=== PATIENT | male | born 1960 | race Caucasian/White ===

== ENCOUNTER → 2024-02-02 13:09 | Outpatient (REF) | payer MEDICAID, SELFPAY | LOC: RAD 13:09 | PROVIDERS: ATTENDING PHYSICIAN Surgery Vascular Surgery; FAMILY PHYSICIAN Internal Medicine | DX: I73.9 Peripheral vascular disease, unspecified (principal) | CPT/HCPCS: 93922; 93925 ==

== ENCOUNTER → 2024-07-23 10:44 | Outpatient (REF) | payer MEDICAID, SELFPAY | LOC: RAD 10:44 | PROVIDERS: ATTENDING PHYSICIAN Registered Nurse | DX: I73.9 Peripheral vascular disease, unspecified (principal) | CPT/HCPCS: 93922; 93925 ==

== ENCOUNTER → 2025-04-18 09:37 | Outpatient (REF) | payer OTHER, SELFPAY | LOC: RAD 09:37 | PROVIDERS: ATTENDING PHYSICIAN Surgery Vascular Surgery | DX: I73.9 Peripheral vascular disease, unspecified (principal) | CPT/HCPCS: 93922; 93925 ==

== ENCOUNTER → 2025-06-09 14:42 | Outpatient (REF) | payer OTHER, SELFPAY | LOC: RAD 14:42 | PROVIDERS: ATTENDING PHYSICIAN Surgery Vascular Surgery; FAMILY PHYSICIAN Internal Medicine | DX: I73.9 Peripheral vascular disease, unspecified (principal) | CPT/HCPCS: 75635; Q9967 ==

== ENCOUNTER 2025-09-01 08:20 | Inpatient (IN) | payer OTHER, SELFPAY ==
[2025-08-28 13:47] LABS: APTT 28.4 Sec (23.4-35.0); Hematocrit 39.5 % (39.0-52.0); Hemoglobin 14.2 g/dL (13.0-18.0); INR 1.05; Mean Corp Hgb Conc. 35.9 g/dL (33.0-37.0); Mean Corpuscular Volume 107.0 fL (80.0-94.0); Nucleated Red Blood Cells % 0 % (-); PT 14.0 Sec (11.4-14.6); Platelet Count 207 10^3/uL (130-400); Red Cell Dist. Width 13.2 % (11.5-14.5)
[2025-08-28 13:48] VITALS: BMI 33.8
[2025-08-28 13:49] LABS: Blood Urea Nitrogen 12 mg/dl (9-20); Calcium 9.0 mg/dl (8.4-10.2); Carbon Dioxide 21 mmol/L (22-30); Chloride 106 mmol/L (98-107); Estimated Creatinine Clearance > 125 ml/min; Glucose 86 mg/dl (70-99); Potassium 4.3 mmol/L (3.5-5.1); Sodium 141 mmol/L (135-145); eGFR > 60.00
[2025-09-01] VITALS (11 sets, daily range): BP systolic 135–154; BP diastolic 81–97; BMI 33.9
[2025-09-01] MEDS: PERIDEX 0.12% ORAL RINSE 15 ML PO (08:47)
[2025-09-01] MEDS: BACTROBAN NASAL 1 GRAM NASAL (08:47)
[2025-09-01] MEDS: NSS 500 IV (08:50)
--- NOTE | 2025-09-01 08:50 | W.SUR.PREOP ---
Pre-Operative Surgical Note
-
I have examined this patient prior to the performance of the scheduled procedure.
The patient's condition is unchanged from the time of the current History and
Physical and the patient is able to undergo the scheduled procedure.
--- NOTE | 2025-09-01 11:42 | W.SUR.POST ---
Surgical Immediate Post Op
Note
Pre Op Diagnosis: PAD
Post Op Diagnosis: PAD
Procedure Performed: Right femoral endarterectomy with bovine pericardial patch angioplasty
Primary Surgeon: Varghese
Secondary Surgeons: Uziel ESPINOZA
Anesthesia: general
Estimated Blood Loss: 15cc
Fluids: see anesthesia flow sheet
Drains/Shunts: none
Specimens/Cultures: plaque
Doppler/Duplex/Angio (Y/N): Y
Complications: none
Operative Findings: Doppler PT and DP signals
--- NOTE | 2025-09-01 12:09 | OR.RPT ---
Operative Report
Operative Report
PROCEDURE DATE: 09/01/2025
Preoperative diagnosis: Debilitating right calf claudication, possible right leg ischemic rest pain.
Postoperative diagnosis: Same
Procedure: Right iliofemoral endarterectomy (distal external iliac artery, common femoral artery, profunda femoris) with bovine pericardial patch angioplasty/profundoplasty.
Surgeon: Varghese
Pharmaceutical Worker: AZIZA Triplett, required for all aspects of procedure including assistance with traction/countertraction, following a suture line, assistance with closure.
Complications: None
Anesthesia: General
Indications for procedure:
Severe bulky plaque stenosis/near occlusion right common femoral artery/femoral bifurcation. Debilitating claudication as well as possible ischemic rest pain. Risk/benefits/alternatives of revascularization all fully discussed. Patient understood
all and wished to proceed.
Description of procedure:
Patient was identified brought to the operating room placed on the table in supine position. After the adequate administration of anesthesia he was prepped and draped in the standard surgical fashion. A standard preoperative timeout was undertaken
and everybody was in agreement the plan. Longitudinal incision was made in the right groin that was carried through skin subcutaneous tissue with electrocautery. Any crossing lymphatic type branches or venous branches were ligated between silk
ties and divided to allow full exposure. I dissected down to the level of the inguinal ligament. The common femoral artery was then dissected as it emerged from underneath inguinal ligament. It was noted to be heavily calcified. I then continued
dissection to the bifurcation and then onto the proximal superficial femoral artery. This artery was chronically calcified with heavy occlusive plaque as noted on CT scan imaging. Circumferential dissection was performed of the SFA and Vesely
passed around it to allow better retraction of it.
Now I dissected back to the proximal common femoral artery, and underneath the inguinal ligament. The circumflex iliac artery (lateral circumflex iliac artery) were circumferentially dissected and a vessel loop passed around it. I then dissected
proximally to here in the distal external iliac artery. I noted the vessel to be soft but there is a little bit of posterior plaque. However it is nicely clamp up here. I carefully circumferentially dissected and passed a vessel loop around it
here. Note I had seen on the CAT scan there was a large common femoral artery posterior branch. I carefully isolated this branch and circumferentially dissected and passed a vessel loop around it.
Now I dissected back to the femoral bifurcation and the origin of the profunda. The profunda was then dissected through the first branch point. Any crossing veins were ligated between silk ties and then divided. The main 2 branches of profunda
were then controlled with Vesseloops. Now that I had complete control of the femoral branches, I gave the patient 9000's of intravenous heparin. Once this had circulated, I clamped the profunda and profunda branches with the profunda clamp and
tightening a double looped vessel loop. Next I placed a Derra clamp on the distal external iliac artery. Any other branches were now occluded with tightened double looped Vesseloops. An arteriotomy was made on the profunda distally where it was
soft just beyond the branch point. I then extended this arteriotomy with a Cates scissor in a retrograde fashion onto the common femoral artery. There was heavy dense bulky plaque making arteriotomy even challenging. However I was able to extend
my arteriotomy all the way up to the proximal common femoral artery. There was essentially occlusive plaque at the origin of the profunda. Bulky coral reef plaque extending into the SFA. SFA chronically occluded. This point I used a Wales to
endarterectomized the plaque. I was able to feathered the plaque out to a nice clean endpoint on the profunda. The plaque came out somewhat piecemeal. I then grasped the plaque in the common femoral artery and then transected it. I then grasped
it proximally and then used my Wales to continue endarterectomized back to the very proximal common femoral artery and then teased out the plaque. However I had to now extend my clamp a little more cephalad. I now extended my arteriotomy slightly
to the distal external iliac artery as well. I now grasped the remainder of the posterior plaque and any loose plaque and removed it. Now I was satisfied. I had to remove the plaque right up to the clamp. Any fine debris was then removed with a
fine forcep. I then inspected the entire endarterectomy bed and removed any fine debris with fine forceps. I then irrigated heparinized saline. I inspected my proximal distal endpoints and was very satisfied. Of note I had removed some plaque
from the origin of the superficial femoral artery to allow a sewing ring of tissue. The plaque did not come out en bloc from the origin of the SFA but rather piecemeal. At this point I was very satisfied. I did place a 6-0 Prolene [id number]
reapproximation/repair type suture at the crotch of the bifurcation as the anterior wall between the profunda and the SFA had slightly torn. This repair stitch worked very nicely. Now I used a bovine pericardial patch to sew up long patch
angioplasty using a running 6-0 Prolene suture. Prior to completing and tying down my suture line I backbled the branches and then flushed heparinized saline. I then completed and tied down my suture line. I then released the profunda branches
Vesseloops. I then released the Derra clamp on the distal external iliac artery. Now there is excellent pulsatile flow going down. I then remove my profunda clamp. Excellent pulsatile flow is noted in the profunda and its branch. Doppler
confirmed excellent signals. At this point is very satisfied. I irrigated. A single 6-0 Prolene [id number] suture was placed on the suture line/crotch area of the bifurcation for full hemostasis. I now gave protamine to reverse the heparin.
Meticulous hemostasis was achieved. I then irrigated copiously. I confirmed full hemostasis. We then closed in layers using 2 layers of 2-0 Vicryl followed by 3-0 Vicryl deep dermal running layer, followed by 4-0 Monocryl running subcuticular
stitch. Dermabond and dressings were applied. The patient tolerated the procedure well. All sponge, needle, instrument counts were correct at the end of the case. The patient was transported to recovery room in stable condition.
[2025-09-01 12:32] LABS: Hematocrit 38.0 % (39.0-52.0); Hemoglobin 13.2 g/dL (13.0-18.0); Mean Corp Hgb Conc. 34.7 g/dL (33.0-37.0); Mean Corpuscular Volume 105.8 fL (80.0-94.0); Platelet Count 172 10^3/uL (130-400); Red Cell Dist. Width 13.5 % (11.5-14.5)
[2025-09-01 12:56] LABS: Blood Urea Nitrogen 12 mg/dl (9-20); Calcium 8.5 mg/dl (8.4-10.2); Carbon Dioxide 22 mmol/L (22-30); Chloride 107 mmol/L (98-107); Estimated Creatinine Clearance > 125 ml/min; Glucose 113 mg/dl (70-99); Potassium 4.4 mmol/L (3.5-5.1); Sodium 137 mmol/L (135-145); eGFR > 60.00
--- NOTE | 2025-09-01 13:13 | CON.INTV ---
Consultation
Consultation Request
Date/Time Consultation Requested: 09/01
Date/Time Consultation Performed: 09/01
Reason for Consultation: Critical care
Medical History
-
History of Present Illness:
History obtained from the patient and reviewing outpatient and inpatient medical records. Patient is a 64-year-old male with history of hypertension, hyperlipidemia, vascular disease with history of left femoral endarterectomy urgently in 2021,
with ongoing right calf claudication after 50 yards. Patient also has history of coronary disease with recent heart attack about 6 months ago requiring a stent at [facility] (Dr. Toney). Unfortunately continues to smoke, a pipe twice a day. He is
now status post right femoral endarterectomy with bovine patch angioplasty. Presently he is not good spirits. He does have a chronic cough. We are asked to help from critical care standpoint
.
PMH: Hypertension, hyperlipidemia, peripheral vascular disease, autonomic neuropathy, history of cellulitis. History of left femoral endarterectomy 2021. History of coronary disease with [place] requiring stent spring 2024 at [facility]. History of BPH
with hematuria in the past follows urology
Past Medical History
Past Medical History: None (See above)
Past Surgical History: None (See above)
Social History
Tobacco: Former Smoker ([id number], rolled his own cigarettes in the past. Currently smoking a pipe)
Alcohol: Former (Significant alcohol use, quit 2019. Drinks 4 ounces a week at this time)
Drug: None
Personal: Single
Living: With Roomate (Lives with a roommate, has a dog)
Employment: Employed (Works with [employer]. 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
Family History
Family History: Other (1 son from motor vehicle accident.The son healthy. Siblings alive. Negative for blood clots, lung cancer)
Allergies / Home Medications
Allergies
Allergy/AdvReac Type Severity Reaction Status Date / Time
No Known Allergies Allergy Verified 09/01/25 08:37
Home Medications
�Medication �Instructions �Recorded �Confirmed �Last Taken �Type
aspirin 81 mg tablet,delayed 81 mg PO DAILY 07/26/22 09/01/25 08/31/25 10:00 History
release
amlodipine 10 mg tablet 10 mg PO DAILY 08/27/25 09/01/25 08/31/25 10:00 History
atorvastatin 40 mg tablet 40 mg PO DAILY 08/27/25 09/01/25 08/31/25 10:00 History
cefuroxime axetil 500 mg tablet 500 mg PO BID 08/27/25 08/27/25 08/26/25 History
clopidogrel 75 mg tablet (Plavix) 75 mg PO DAILY 08/27/25 09/01/25 08/31/25 10:00 History
gabapentin 300 mg capsule 300 mg PO DAILY 08/27/25 09/01/25 08/31/25 10:00 History
losartan 50 mg tablet 50 mg PO DAILY 08/27/25 09/01/25 08/31/25 10:00 History
metoprolol succinate 50 mg 50 mg PO DAILY 08/27/25 09/01/25 08/31/25 10:00 History
tablet,extended release 24 hr
pantoprazole 40 mg tablet,delayed 40 mg PO DAILY 08/27/25 09/01/25 08/31/25 10:00 History
release (Protonix)
Review of Systems
-
All other systems: Negative unless noted
Vitals / Labs / Diagnostic Testing
Vital Signs
Temp Pulse Resp BP Pulse Ox
97.9 F 90 21 145/83 94
09/01/25 13:01 09/01/25 13:01 09/01/25 13:01 09/01/25 13:01 09/01/25 13:01
Lab Data
09/01/25 12:26
09/01/25 12:26
Diagnostic Testing:
Physical Exam
-
HEENT: Normocephalic, Anicteric and Other (Right upper extremity A-line)
Cardiovascular: S1/S2, Regular Rhythm, Murmur (n), Peripheral Edema (tr) and Other (Peripheral pulses intact. Femoral pulse intact)
Respiratory: Clear, Wheeze (Few scattered), Rales (n), Rhonchi (Few scattered) and Non-Labored Respirations
GI: Soft, Distended (mildly distended, obese) and Non Tender
Neurology: Awake, Alert and No Motor Deficits (Moves all extremities)
Skin: Good Color
General: Comfortable
Assessment
-
64-year-old male with history of peripheral vascular disease, left femoral to tibial bypass surgery in 2021, with ongoing claudication symptoms, now presents status post right femoral endarterectomy with angioplasty
S/p rt femoral endarterectomy with angioplasty
09/01/2025
Ongoing claudication symptoms
History of peripheral vascular disease
S/p LLE femoral endarterectomy 2021(left femoral to posterior tibial artery bypass with ipsilateral greater saphenous vein conduit)
Suspected COPD
History of dark stool while on Xarelto in the past
Conditions present prior to admission
History of transaminitis
ALT 96, AST 223 in June 2025 per outpatient records
Coronary disease history of stent spring 2024
Followed at [facility] ([facility])
Right bundle branch block per EKG
Hypertension/hyperlipidemia
75+ pack year history of smoking, continues to smoke a pipe
Former significant alcohol use, quit 2019
Currently drinks 4 ounces a week
History of BPH, hematuria
Chronic back pain, DJD
Plan/recommendations
At this time, patient appears to be comfortable, but critically ill
Arterial line in place, systolic pressure 160s
Lower extremities warm, pulses intact
Chronic stasis changes left leg noted
Groin intact
On chest exam there is some wheezing and rhonchi
89% on 4 L
Moving forward,
continue with management per vascular surgery
Antiplatelet therapy, IV fluids, subcutaneous heparin per vascular surgery
Follow-up pulses
Blood pressure 160s/80s noted. Follow
Resume outpatient regimen
Recent coronary event with stent placement
Continue aspirin/Plavix
Patient status post PCI proximal RCA stent 03/10/2025
History of dark stool and hematuria in the past noted
Pain control
Bowel regimen as needed
CXR 08/28 unremarkable
Wheezing on exam noted
Incentive spirometry, airway clearance
Suspect there is a component of COPD. Patient does not see pulmonary
DuoNebs as needed
Would benefit from outpatient pulmonary follow-up. Would benefit from lung cancer screening
Abdominal images from earlier this year lung bases are clear
Although patient is cut down from 2 packs a day, he is still smoking a pipe on a daily basis
Tobacco cessation will be an ongoing discussion
Reviewed with critical care nursing
We will follow
TCCT 31 min
[2025-09-01] MEDS: NSS 1000 IV (13:58)
--- NOTE | 2025-09-01 14:00 | PTCARENOTE ---
1315-Received pt from PACU via bed.Pt is awake and alert.No dysarthria noted.+5/5 bl upper ext.+2-3/5 bl lower ext.c/o right groin pain with movement.SR noted.Right radial A Line intact and at mid axillary.IVF infusing as ordered.Coarse breath
sounds with inspiratory wheeze noted.POX 95% on 4l NC.O2.Tolerating clear liquids.Zavala draining yellow urine.Right groin intact with dressing.Plan of care discussed with pt.
[2025-09-01] MEDS: TYLENOL 650 MG PO ×2 (14:02→21:07)
[2025-09-01] MEDS: DUONEB 3 ML INH ×2 (15:27→19:55)
--- NOTE | 2025-09-01 16:30 | PTCARENOTE ---
Pt assessed.No change in assessment noted.
[2025-09-01] MEDS: HEPARIN 5000 UNITS SC (16:54)
[2025-09-01 20:12] LABS: Magnesium 1.0 mg/dl (1.6-2.3)
[2025-09-01] MEDS: MAGNESIUM SULFATE 100 IV (21:08)
[2025-09-02] VITALS (7 sets, daily range): BP systolic 100–148; BP diastolic 56–87; BMI 34.1
--- NOTE | 2025-09-02 00:03 | PTCARENOTE ---
Strong doppler signals bilaterally. Tylenol requested for pain. Groin dressing CDI. Mag level 1.0, 4g mag given as ordered. Will monitor
[2025-09-02] MEDS: HEPARIN 5000 UNITS SC ×4 (00:26→23:57)
[2025-09-02] MEDS: NSS 1000 IV (00:26)
[2025-09-02 03:41] LABS: Hematocrit 34.9 % (39.0-52.0); Hemoglobin 12.7 g/dL (13.0-18.0); Mean Corp Hgb Conc. 36.4 g/dL (33.0-37.0); Mean Corpuscular Volume 107.7 fL (80.0-94.0); Platelet Count 159 10^3/uL (130-400); Red Cell Dist. Width 13.1 % (11.5-14.5)
[2025-09-02 03:52] LABS: INR 1.02; PT 13.7 Sec (11.4-14.6)
[2025-09-02 03:53] LABS: APTT 28.0 Sec (23.4-35.0)
--- NOTE | 2025-09-02 03:53 | PTCARENOTE ---
CHG provided. Labs sent and pending. No change in previous assessment. Will monitor.
[2025-09-02 04:01] LABS: Blood Urea Nitrogen 13 mg/dl (9-20); Calcium 8.6 mg/dl (8.4-10.2); Carbon Dioxide 24 mmol/L (22-30); Chloride 106 mmol/L (98-107); Estimated Creatinine Clearance > 125 ml/min; Glucose 173 mg/dl (70-99); Magnesium 1.9 mg/dl (1.6-2.3); Potassium 4.2 mmol/L (3.5-5.1); Sodium 135 mmol/L (135-145); eGFR > 60.00
[2025-09-02] MEDS: TOPROL XL 50 MG PO (07:11)
[2025-09-02] MEDS: COZAAR 50 MG PO (07:11)
[2025-09-02] MEDS: NORVASC 10 MG PO (07:11)
[2025-09-02] MEDS: DUONEB 3 ML INH ×4 (07:36→19:39)
--- NOTE | 2025-09-02 07:40 | PTCARENOTE ---
Handoff from night RN, walking rounds performed, pt hypertensive this am, due for BP meds...given by night RN at approx 07:30. Pt AOx3, pt pleasant and cooperative. Dr. Kwong and CORNCOB PIPE SUPERVISOR at bedside at this time, orders rec'd. Pt updated. Call worthy in reach.
--- NOTE | 2025-09-02 07:57 | W.PN.INTV ---
Addendum entered and electronically signed by Dafne Ramos MD 09/02/25 17:12:
Patient transferred out of ICU
Pulmonary will continue to follow
Original Note:
Today's Communication / Plan
Recommendations
Continue DuoNebs
Doxycycline started
Will require follow-up chest x-ray in 4 to 6 weeks to confirm resolution of right lower lobe process
Tobacco cessation
Out of bed to chair, ambulate
Disposition efforts
Assessment
-
64-year-old male with history of peripheral vascular disease, left femoral to tibial bypass surgery in 2021, with ongoing claudication symptoms, now presents status post right femoral endarterectomy with angioplasty
S/p rt femoral endarterectomy with angioplasty
09/01/2025
Secondary to claudication symptoms
History of peripheral vascular disease
S/p LLE femoral endarterectomy 2021(left femoral to posterior tibial artery bypass with ipsilateral greater saphenous vein conduit)
Respiratory insufficiency, hypoxia
Requiring 4 L
Suspected COPD
History of dark stool while on Xarelto in the past
Questionable right lower lobe pneumonia versus mucous plugging
Conditions present prior to admission
History of transaminitis
ALT 96, AST 223 in June 2025 per outpatient records
Coronary disease history of stent spring 2024
Followed at [place] ([facility])
Right bundle branch block per EKG
Hypertension/hyperlipidemia
75+ pack year history of smoking, continues to smoke a pipe
Former significant alcohol use, quit 2019
Currently drinks 4 ounces a week
History of BPH, hematuria
Chronic back pain, DJD
Plan/recommendations
At this time, patient appears to be comfortable
Hypoxia noted overnight requiring 4 L
Chest x-ray with questionable right lower lobe process, pneumonitis versus mucous plugging
Chest exam has improved
Lower extremities warm, pulse intact, groin intact
89% on 4 L
Moving forward,
continue with management per vascular surgery
Antiplatelet therapy, IV fluids, subcutaneous heparin per vascular surgery
A-line to be discontinued, Zavala to be discontinued, out of bed to chair
Resume outpatient regimen
Recent coronary event with stent placement
Continue aspirin/Plavix
Patient status post PCI proximal RCA stent 03/10/2025
History of dark stool and hematuria in the past noted
Hemoglobin stable
Pain control
Bowel regimen as needed
CXR 08/28 unremarkable
Chest x-ray 09/01 with right lower lobe process, suspect mucous plugging
Wheezing on exam noted
Incentive spirometry, airway clearance
Will check sputum culture and give short course of doxycycline
Unfortunately, patient continues to smoke
Reviewed importance of tobacco cessation
Suspect there is a component of COPD. Patient does not see pulmonary
DuoNebs as needed
Would benefit from outpatient pulmonary follow-up. Would benefit from lung cancer screening
Abdominal images from earlier this year lung bases are clear
Although patient is cut down from 2 packs a day, he is still smoking a pipe on a daily basis
He has told other providers that he also continues to smoke 2 cigarettes a day
Tobacco cessation will be an ongoing discussion
Reviewed with critical care nursing, respiratory care, pharmacy
Ongoing disposition efforts
Subjective Dataa
Subjective Data
Date of Service:
Date of Service: September 02, 2025
Subjective:
Overall, patient appears to be comfortable. He denies chest pain, nausea. He has some mild groin discomfort, denies leg pain. Productive cough noted, no hemoptysis.
Objective Data
Data Reviewed
Vital Signs / I&O / Oxygen:
Vital Signs
Temp Pulse Resp BP Pulse Ox
98.4 F 79 18 172/76 90
09/02/25 03:50 09/02/25 07:38 09/02/25 07:38 09/02/25 07:11 09/02/25 07:38
Intake and Output
09/01/25 09/02/25 09/03/25
06:59 06:59 06:59
Intake Total 1790 / 1870 80 / 80
Output Total 1725 / 1725
Balance 65 / 145 80 / 80
SaO2 90
Nasal Cannula flow liters per 4
minute
Physical Exam
General: Comfortable
HEENT: Normocephalic and Anicteric
Cardiovascular: S1-S2, Regular Rhythm, Murmur (n), Rub (n), Peripheral Edema (Trace left lower extremity) and Other (Pulses intact, right groin intact)
Respiratory: Wheeze (n), Crackles (n), Rhonchi (Improved), Non-Labored Respirations and Other (Bronchial breath sounds)
GI: Soft, Non Distended (Obese) and Non Tender
Neurology: Awake, Alert and No Motor Deficits
Skin: Jaundice (n) and Rash (n)
Labs/Micro/Reports
Lab Data
09/02/25 03:00
09/02/25 03:00
Laboratory Results
09/02/25
03:00
PT 13.7
INR 1.02
APTT 28.0
--- NOTE | 2025-09-02 08:11 | W.PN.VS ---
Addendum entered and electronically signed by Himanshu Kwong MD 09/02/25 15:14:
Seen and examined earlier this a.m. with CARDING MACHINE OPERATOR. Agree with findings as noted below. Patient without significant complaints at that time. Abdomen soft. Right groin flat. Dressing clean dry and intact. Foot warm with excellent Doppler signals.
Plan/as discussed and noted below.
Original Note:
Today's Communication / Plan
-
Patient seen and examined at bedside with Dr. Himanshu Kwong M.D., below plan reviewed with attending.
Assessment/Plan
-
Assessment: 64-year-old male POD #1 right femoral endarterectomy
Plan:
Discontinue IV fluids
Discontinue arterial line
Discontinue Zavala catheter
Patient can get out of bed to chair this morning
Continue home regimen of aspirin 81 mg p.o. daily and Plavix 75 mg p.o. daily, along with statin
Continue neurovascular checks
Continue to encourage incentive spirometry
Subjective Data
-
Date of Service: September 02, 2025
Patient seen examined bedside, offers no complaints. Reports adequate postoperative pain management. Indicates he did not have any ischemic rest leg pain symptoms overnight and right lower extremity, which was his presenting chief complaint
preoperatively.
Objective Data
-
Vital Signs
Temp Pulse Resp BP Pulse Ox
98.2 F 79 18 172/76 90
09/02/25 08:08 09/02/25 07:38 09/02/25 07:38 09/02/25 07:11 09/02/25 07:38
Intake and Output
09/01/25 09/02/25 09/03/25
06:59 06:59 06:59
Intake Total 1790 / 1870 80 / 80
Output Total 1725 / 1725
Balance 65 / 145 80 / 80
Intake:
Oral fluids 360 / 360
IV fluids (Total) 1330 / 1410 80 / 80
Nss 1,000 ml @ 80 mls/hr IV . 1280 / 1360 80 / 80
[id number] Rx#:[id number]
normal saline 50 / 50
IV piggybacks 100 / 100
Output:
Urine, Zavala 1725 / 1725
Lab Results
09/02/25 03:00
09/02/25 03:00
Calcium 8.6 mg/dl (8.4-10.2) 09/02/25 03:00
Phosphorus Cancelled 09/01/25 14:39
Magnesium 1.9 mg/dl (1.6-2.3) 09/02/25 03:00
Physical Exam
-
Afebrile
No apparent distress, resting in bed comfortably
No tachycardia
No dyspnea
Right groin dressing clean, dry, and intact, all compartments soft, no evidence of hematoma
Right foot warm, DP and PT Doppler signals
Zavala draining clear yellow urine
[2025-09-02] MEDS: TYLENOL 650 MG PO ×4 (08:25→23:57)
[2025-09-02] MEDS: PROTONIX 40 MG PO (08:26)
[2025-09-02] MEDS: PLAVIX 75 MG PO (08:26)
[2025-09-02] MEDS: NEURONTIN 300 MG PO (08:26)
[2025-09-02] MEDS: ASPIR LOW (ENTERIC COATED) 81 MG PO (08:26)
[2025-09-02] MEDS: LIPITOR 40 MG PO (08:26)
[2025-09-02] MEDS: VIBRAMYCIN 100 MG PO ×2 (08:26→19:44)
--- NOTE | 2025-09-02 09:04 | PTCARENOTE ---
Art line, alegria and IVF dc'd at this time per orders.
--- NOTE | 2025-09-02 10:53 | PTCARENOTE ---
Pt voiding via urinal s/p alegria removal; hematuria noted, pt stated this is not new for him. He stated that it seems slightly worse than usual. Will continue to monitor.
--- NOTE | 2025-09-02 12:10 | CM ---
Initial assessment completed with patient who rents and lives in a 2nd floor room in a 2 story townhouse with 2 other house mates, 14 steps to get to his room. CHECKING CLERK patient was independent in ambulation with a SPC and ADL's, does not drive. Has a
SPC and B/P machine. No in-home services. No HC-POA. Was in the [employer] but no VA benefits. No psychiatric hospitalizations. PCP is Dr. Emely Miller-Lisbeth Rubio. Pharmacy is [facility] on [address]. Discharge POC: TBD. Anticipate home with
NN vs Home with HH RN and possibly PT. Await therapy eval.
--- NOTE | 2025-09-02 14:51 | PTCARENOTE ---
Pt oob to chair at 14:00, using own cane, standby assist. Pt did complain of pain in right groin and knee, but tolerated transfer well.
--- NOTE | 2025-09-02 16:47 | PTCARENOTE ---
Report called to 2 [facility] RN -pt to be transferred to [id number], awaiting transport at this time. Pt updated.
--- NOTE | 2025-09-02 17:43 | PTCARENOTE ---
Pt arrived to 2S via stretcher, assisted into bed by NSG staff. Telemetry applied. + B/L DP and PT doppler pulses. R groin DSG C/D/I, soft around the site no hematoma noted. Nasal cannula maintained. Pt instructed to ring for assistance with
ambulation, verbalized understanding. Bed locked and in the lowest position, safety maintained. Oriented to room and call worthy.
[2025-09-03] MEDS: TYLENOL 650 MG PO ×2 (05:03→09:01)
[2025-09-03 06:36] LABS: Hematocrit 35.6 % (39.0-52.0); Hemoglobin 12.2 g/dL (13.0-18.0); Mean Corp Hgb Conc. 34.3 g/dL (33.0-37.0); Mean Corpuscular Volume 112.7 fL (80.0-94.0); Platelet Count 145 10^3/uL (130-400); Red Cell Dist. Width 13.6 % (11.5-14.5)
[2025-09-03 07:00] VITALS: BP 135/95
[2025-09-03 07:02] LABS: Blood Urea Nitrogen 17 mg/dl (9-20); Calcium 8.2 mg/dl (8.4-10.2); Carbon Dioxide 27 mmol/L (22-30); Chloride 104 mmol/L (98-107); Estimated Creatinine Clearance > 125 ml/min; Glucose 109 mg/dl (70-99); Potassium 4.2 mmol/L (3.5-5.1); Sodium 139 mmol/L (135-145); eGFR > 60.00
--- NOTE | 2025-09-03 07:31 | W.PN.VS ---
Today's Communication / Plan
-
Patient seen and examined at bedside with Dr. Himanshu Kwong, below plan reviewed with attending.
Assessment/Plan
-
Assessment: 64-year-old male POD #2 right femoral endarterectomy
Plan:
PT
Encourage ambulation
Appreciate pulmonology recommendations, on doxycycline for suspected pulmonary process
Continue home regimen of aspirin 81 mg p.o. daily and Plavix 75 mg p.o. daily, along with statin
Continue neurovascular checks
Continue to encourage incentive spirometry
Possible discharge this afternoon pending progression from a pulmonary process and tolerating ambulation
Subjective Data
-
Date of Service: September 03, 2025
Patient seen and examined at bedside, reports well managed post operative pain. Denies dyspnea or difficulty with breathing despite continuing to require supplemental oxygen via NC. He has continued to vocalize desire for discharge today. Denies
nausea, vomiting, fever, and chills. Reports urine color is back to his baseline.
Objective Data
-
Vital Signs
Temp Pulse Resp BP Pulse Ox
98.1 F 83 18 127/64 90
09/02/25 23:18 09/02/25 23:18 09/02/25 23:18 09/02/25 23:18 09/02/25 23:18
Intake and Output
09/02/25 09/03/25 09/04/25
06:59 06:59 06:59
Intake Total 1790 / 1870 1040 / 1040
Output Total 1725 / 1875 1550 / 1550
Balance 65 / -5 -510 / -510
Intake:
Oral fluids 360 / 360 960 / 960
IV fluids (Total) 1330 / 1410 80 / 80
Nss 1,000 ml @ 80 mls/hr IV . 1280 / 1360 80 / 80
[id number] JO Rx#:[id number]
normal saline 50 / 50
IV piggybacks 100 / 100
Output:
Urine, Zavala 1725 / 1875 300 / 300
Urine, Voided 1250 / 1250
Lab Results
09/03/25 06:01
09/03/25 06:01
Calcium 8.2 mg/dl (8.4-10.2) L 09/03/25 06:01
Phosphorus Cancelled 09/01/25 14:39
Magnesium 1.9 mg/dl (1.6-2.3) 09/02/25 03:00
Physical Exam
-
Afebrile
No apparent distress, resting in bed comfortably
No tachycardia
No dyspnea on supplemental oxygen via NC
Right groin dressing removed, suture line well approximated, and exofin glue intact, all compartments soft, no evidence of hematoma
Right foot warm, DP and PT Doppler signals
Urinal at bedside urine clear and yellow
[2025-09-03] MEDS: DUONEB 3 ML INH ×2 (07:37→11:23)
[2025-09-03] MEDS: ASPIR LOW (ENTERIC COATED) 81 MG PO (08:33)
[2025-09-03] MEDS: NEURONTIN 300 MG PO (08:33)
[2025-09-03] MEDS: TOPROL XL 50 MG PO (08:33)
[2025-09-03] MEDS: HEPARIN 5000 UNITS SC (08:33)
[2025-09-03] MEDS: PROTONIX 40 MG PO (08:33)
[2025-09-03] MEDS: PLAVIX 75 MG PO (08:33)
[2025-09-03] MEDS: LIPITOR 40 MG PO (08:33)
[2025-09-03] MEDS: NORVASC 10 MG PO (08:33)
[2025-09-03] MEDS: COZAAR 50 MG PO (08:33)
[2025-09-03] MEDS: VIBRAMYCIN 100 MG PO (08:33)
[2025-09-03 10:01] LABS: Procalcitonin 0.60 ng/ml (0.0-0.25)
[2025-09-03 11:19] VITALS: BP 108/53
[2025-09-03 12:10] VITALS: BP 121/60; PULSE 83
--- NOTE | 2025-09-03 14:35 | W.DS.TRANS ---
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
-
Discharge Instructions:
Discharge Diagnosis/Procedures Femoral endarterectomy
Diet As tolerated
Activity No strenuous activity
Driving Restrictions Not until seen by your Dr
Bathing Restrictions OK to Shower
Instructions:
Stand-Alone Forms: Vascular Surg Discharge Instr
Changes to Home Medications: Yes
Discharge Medications:
DC Medications w/original date entered in [employer]
aspirin 81 mg tablet,delayed release 81 mg PO DAILY Blood Clot Prevention/Tx 07/26/22
amlodipine 10 mg tablet 10 mg PO DAILY Blood Pressure 08/27/25
atorvastatin 40 mg tablet 40 mg PO DAILY High Cholesterol 08/27/25
clopidogrel 75 mg tablet (Plavix) 75 mg PO DAILY Blood Clot Prevention/Tx 08/27/25
gabapentin 300 mg capsule 300 mg PO DAILY Pain 08/27/25
losartan 50 mg tablet 50 mg PO DAILY Blood Pressure 08/27/25
metoprolol succinate 50 mg tablet,extended release 24 hr 50 mg PO DAILY Heart Disease/Condition 08/27/25
pantoprazole 40 mg tablet,delayed release (Protonix) 40 mg PO DAILY Gastrointestinal Issue 08/27/25
albuterol sulfate 90 mcg/actuation aerosol inhaler (Ventolin HFA) 2 puff inhalation Q6H PRN shortness of breath or wheezing #6.7 grams 09/03/25
doxycycline hyclate 100 mg capsule 100 mg PO Q12 7 days #14 caps 09/03/25
Home Medication Changes
Added albuterol for SOB
Added doxycycline for PNA
Pending Results: No
[2025-09-03] MEDS: DUONEB INH (14:52)
--- NOTE | 2025-09-03 15:17 | W.PN.PUL3 ---
Today's Communication / Plan
-
- Continue doxycycline at discharge, recommend total 7 days of treatment
- Start albuterol 2 puffs every 6 hours as needed shortness of breath at discharge
- Patient can be discharged from pulmonary standpoint
- Outpatient follow-up with [facility] pulmonary clinic in coming weeks, information added to discharge section
Assessment
-
64-year-old male with history of peripheral vascular disease, left femoral to tibial bypass surgery in 2021, with ongoing claudication symptoms, now presents status post right femoral endarterectomy with angioplasty
S/p rt femoral endarterectomy with angioplasty
09/01/2025
Secondary to claudication symptoms
History of peripheral vascular disease
S/p LLE femoral endarterectomy 2021(left femoral to posterior tibial artery bypass with ipsilateral greater saphenous vein conduit)
Respiratory insufficiency, hypoxia, resolved now, on Room air.
Suspected COPD
History of dark stool while on Xarelto in the past
Questionable right lower lobe pneumonia versus mucous plugging vs atelectasis
Conditions present prior to admission
History of transaminitis
ALT 96, AST 223 in June 2025 per outpatient records
Coronary disease history of stent spring 2024
Followed at [facility] ([facility])
Right bundle branch block per EKG
Hypertension/hyperlipidemia
75+ pack year history of smoking, continues to smoke a pipe
Former significant alcohol use, quit 2019
Currently drinks 4 ounces a week
History of BPH, hematuria
Chronic back pain, DJD
Plan/recommendations
From pulmonary standpoint, procalcitonin minimally elevated. Patient is otherwise afebrile. Reports minimal occasional cough with clear expectoration. No difficulty breathing. Saturating well on room air.
In view of elevated Pro-Jaspal and pulmonary opacity, recommend doxycycline 100 mg p.o. twice daily for 7 days.
Suspect patient has underlying obstructive airway disease, recommend initiating albuterol on an as needed basis until patient is seen in pulmonary clinic where we will pursue 6-minute walk test and pulmonary function testing before deciding on
additional inhaler therapy. Patient also will need low-dose CT scan for lung cancer screening as outpatient, counseled patient to follow-up with pulmonary clinic postdischarge. Information added to discharge section.
Total time spent on this consultation/encounter _36___ minutes which includes review of history, physical exam, medications, laboratory data, personal review of imaging, extensive review of outpatient records, discussion with care team and
respiratory therapy.
Updated vascular surgery service regarding plan
Subjective Data
-
Date of Service:
Date of Service: September 03, 2025
Subjective:
Comfortably sitting in bed, currently on room air, reports feeling well. Minimal cough with clear expectoration. No fever.
Review of Systems
Genitourinary: Other (All 14 systems reviewed and negative except as stated above in the history of present illness.)
Objective Data
Data Reviewed
Vital Signs / I&O / Oxygen:
Vital Signs
Temp Pulse Resp BP Pulse Ox
98.8 F 81 18 108/53 93
09/03/25 11:19 09/03/25 11:26 09/03/25 11:26 09/03/25 11:19 09/03/25 11:26
Intake and Output
09/02/25 09/03/25 09/04/25
06:59 06:59 06:59
Intake Total 1790 / 1870 1040 / 1040
Output Total 1725 / 1875 1550 / 1550
Balance 65 / -5 -510 / -510
SaO2 93
Nasal Cannula flow liters per 0.5
minute
Physical Exam
General: Comfortable
HEENT: Normocephalic
Cardiovascular: S1-S2
Respiratory: Clear and Non-Labored Respirations
GI: Soft and Non Distended
Neurology: Awake
Skin: Warm
Labs/Micro/Reports
Lab Data
09/03/25 06:01
09/03/25 06:01
Microbiology
09/02/25 06:48 Sputum Respiratory Culture - Final
09/02/25 06:48 Sputum Gram Stain - Final
--- NOTE | 2025-09-03 15:18 | CM ---
CM reviewed chart and noted dc order
bedside meeting with pt
VN recs by PT- pt declined
He has arranged ride home at 1600
Discharge Disposition- home no needs, private transport
[2025-09-03 15:30] VITALS: BP 121/68
--- NOTE | 2025-09-05 09:24 | W.DCSUMMARY ---
Discharge Summary
Discharge Data
Date of Admission: 09/01/25
Date of Discharge: 09/03/25
-
Pending Results: No
Hospital Course
Attending: Varghese
Consultants: Pulmonary medicine
Allergies: NKDA
Procedure with date: 09/01/25: right iliofemoral endarterectomy with bovine pericardial patch angioplasty/profundoplasty
History of present illness: The patient is an 64 -year-old male with multiple medical conditions including: Hypertension, hyperlipidemia, PVD, autonomic neuropathy, history of cellulitis, CAD with ND, BPH, ex-smoker. Patient presented on 09/01/25
for scheduled procedure with Dr. Zavala. Patient presented at baseline health with no reports of recent illness or trauma.
Hospital Course: Briefly, the patient underwent scheduled FEA without complications, and recovered in PACU. Following recovery phase one and two patient was transferred to intensive care unit per protocol for continued hemodynamic monitoring.
Artificial Limb Maker consulted to aid in medical management from a critical care perspective. POD #1 (09/02/25) Patient doing well overall and tolerating PO diet. Surgical groin site clean, dry, and intact with suture line well approximated and soft. No
evidence of hematoma. Arterial line and IV fluids discontinued. POD 2 (09/03/25) antibiotics added by pulmonology for suspected pulmonary process, patient without symptoms. Patient able to ambulate without difficulty or incident. Patient stable for
discharge to home.
Prescriptions and follow up appointment are included in the DC summary therapy aide note. All instructions were given to the patient in both written and verbal form and the patient expressed understanding.
Discharge Plan
-
Patient Disposition: Home (Routine Discharge)
Discharge Diagnosis/Procedures: Femoral endarterectomy
Condition: Good
Diet: As tolerated
Activity: No strenuous activity
Driving Restrictions: Not until seen by your Dr
Bathing Restrictions: OK to Shower
Stand Alone Forms: Vascular Surg Discharge Instr
Referrals:
Dafne Ramos MD [Active, Pulmonary Medicine] - in one to two months
Referral Note: High risk for lung cancer, recommend lung cancer screening
Recommend pulm function test and optimization of pulmonary regimen given COPD
Judith Rubio MD [Family Provider]
Kimberly Macias CRNP [Specified Professional Personl, Vascular Surgery] - 09/16/25 2:00 pm
Referral Note: Vascular surgery office follow up
Prescriptions:
New
doxycycline hyclate 100 mg Capsule
100 mg PO Q12 7 Days Qty: 14 0RF
albuterol sulfate [Ventolin HFA] 90 mcg/actuation HFA aerosol inhaler
2 puff inhalation Q6H PRN (Reason: shortness of breath or wheezing) Qty: 6.7 0RF
Continued
aspirin 81 mg Tablet,Delayed Release (Dr/Ec)
81 mg PO DAILY
losartan 50 mg Tablet
50 mg PO DAILY
atorvastatin 40 mg Tablet
40 mg PO DAILY
metoprolol succinate 50 mg Tablet Extended Release 24 Hr
50 mg PO DAILY
clopidogrel [Plavix] 75 mg Tablet
75 mg PO DAILY
pantoprazole [Protonix] 40 mg Tablet,Delayed Release (Dr/Ec)
40 mg PO DAILY
gabapentin 300 mg Capsule
300 mg PO DAILY
amlodipine 10 mg Tablet
10 mg PO DAILY
Discharge Orders:
Discharge Patient (As Directed); Ordered 09/03/25
Ordered By: April Toledo
Discharge Date and Time
Discharge Date/Time: 09/03/25 16:20
Print Language: PERSIAN
== END 2025-09-03 16:20 | disposition home or self-care (01) | DRG 270 ==
LOC: 2 SOUTH 08:20
PROVIDERS: Internal Medicine; Nurse Practitioner; Nurse Practitioner Acute Care; ADMITTING PHYSICIAN Surgery Vascular Surgery; CONSULT PHYSICIAN Internal Medicine Critical Care Medicine; FAMILY PHYSICIAN Internal Medicine; PRIMARYCARE PHYSICIAN Internal Medicine
PROC: 047K3ZZ Dilation of Right Femoral Artery, Percutaneous Approach (ICD-10-PCS; 2025-09-01)
PROC: 04CK3ZZ Extirpation of Matter from Right Femoral Artery, Percutaneous Approach (ICD-10-PCS; 2025-09-01)
DX: I70.211 Atherosclerosis of native arteries of extremities with intermittent claudication, right leg (principal); J18.9 Pneumonia, unspecified organism; F17.210 Nicotine dependence, cigarettes, uncomplicated; G89.29 Other chronic pain; I10 Essential (primary) hypertension; Z79.02 Long term (current) use of antithrombotics/antiplatelets; Z79.82 Long term (current) use of aspirin; Z79.899 Other long term (current) drug therapy
CPT/HCPCS: 35355; 36415; 71045; 71046; 80048; 83735; 84100; 84145; 85025; 85027; 85610; 85730; 86850; 86900; 86901; 87205; 88304; 88311; 93005; 94640; 97162